=== PATIENT | male | born 1965 ===

== ENCOUNTER 2018-06-22 11:54 | Inpatient (IN) | payer OTHER ==
--- NOTE | 2018-06-22 12:36 | ED PDOC ---
Arrival/HPI - General Chief Complaint: Alcohol Ingestion Time Seen by Provider: 06/22/18 11:55 Historian: Patient, EMS - History of Present Illness Narrative History of Present Illness (Text): 06/22/18 12:33 53-year-old male presents today brought in by ambulance after being found wandering on the street. Patient is not responding to questions appropriately. He denies any pain. Admits to drinking alcohol 3 days ago. He denies any drug use. patient denies any recent trauma or injury but states he fell . along time ago. Past Medical History - Provider Review Nursing Documentation Reviewed: Yes - Travel History Have you recently traveled outside [place] w/in the past 3 mons?: No - Tetanus Immunization Tetanus Immunization: Unknown - Cardiac Hx Cardiac Disorders: No - Pulmonary Hx Respiratory Disorders: No - Neurological Hx Neurological Disorder: Yes Hx Seizures: Yes - HEENT Hx HEENT Disorder: No - Renal Hx Renal Disorder: No - Endocrine/Metabolic Hx Endocrine Disorders: No - Hematological/Oncological Hx Blood Disorders: No - Integumentary Hx Dermatological Disorder: No - Musculoskeletal/Rheumatological Hx Musculoskeletal Disorders: No - Gastrointestinal Hx Gastrointestinal Disorders: No - Genitourinary/Gynecological Hx Genitourinary Disorders: No - Psychiatric Hx Psychophysiologic Disorder: No Hx Substance Use: No Family/Social History - Physician Review Nursing Documentation Reviewed: Yes Family/Social History: Unknown Family HX Smoking Status: Current Some Days Smoker Hx Alcohol Use: Yes Hx Substance Use: No Allergies/Home Meds Allergies/Adverse Reactions: Allergies No Known Allergies Allergy (Verified 06/22/18 11:55) Home Medications: Home Meds Medication Instructions Recorded Confirmed No Known Home Med 06/22/18 06/22/18 Review of Systems - Review of Systems Systems not reviewed;Unavailable: Altered Mental Status Constitutional: absent: Fevers Respiratory: absent: Cough Cardiovascular: absent: Chest Pain Gastrointestinal: absent: Abdominal Pain, Nausea, Vomiting Musculoskeletal: Arthralgias (old injury right shoulder.). absent: Back Pain, Neck Pain Skin: absent: Rash, Pruritis Neurological: absent: Headache, Dizziness Physical Exam Vital Signs Reviewed: Yes Temperature: Afebrile Blood Pressure: Normal Pulse: Regular Respiratory Rate: Normal Appearance: Positive for: Well-Appearing, Non-Toxic, Comfortable Pain Distress: None Mental Status: Positive for: other (alert) - Systems Exam Head: Present: Other (old healed scars noted to forehead.) Pupils: Present: PERRL Mouth: Present: Moist Mucous Membranes Neck: Present: Normal Range of Motion, Trachea Midline. No: MIDLINE TENDERNESS, Paraspinal Tenderness Respiratory/Chest: Present: Clear to Auscultation, Good Air Exchange. No: Respiratory Distress, Accessory Muscle Use, Tender to Palpation Cardiovascular: Present: Regular Rate and Rhythm, Normal S1, S2. No: Murmurs Abdomen: No: Tenderness, Distention, Rebound, Guarding Back: Present: Other (old healing abrasion noted to midline back. ). No: Midline Tenderness, Paraspinal Tenderness Upper Extremity: Present: Tenderness (right shoulder; no tenderness. limited abduction, + deformity noted to clavicle/shoulder. ), Neurovascularly Intact. No: Normal ROM Lower Extremity: Present: Normal Inspection Neurological: Present: GCS=15, Motor Func Grossly Intact Skin: Present: Warm, Dry Psychiatric: Present: Alert. No: Depressed Mood Medical Decision Making ED Course and Treatment: 06/22/18 12:38 53yr old male with AMS. fingerstick; 91 cbc wbc; 3.8 cmp: wnl trop wnl ekg; normal sinus rhythm at 72 beats per minute, normal axis, incomplete RBBB, [id number] cxr; wnl ua; yeast uds: wnl tylenol negative etoh negative salicylates; negative head ct; FINDINGS: HEMORRHAGE: No intracranial hemorrhage. BRAIN: No mass effect or edema. No atrophy or chronic microvascular ischemic changes. VENTRICLES: Unremarkable. No hydrocephalus. CALVARIUM: Unremarkable. PARANASAL SINUSES: Unremarkable as visualized. No significant inflammatory changes. MASTOID AIR CELLS: Unremarkable as visualized. No inflammatory changes. OTHER FINDINGS: None. IMPRESSION: No acute intracranial findings 06/22/18 15:35 pt is NOT alert to place or time. labs unremarkable. ct head. wnl uds; negative, alcohol negative. will admit to med/surg. case discussed with dr. Phan accepts admission to med/surg for AMS. all aspects of this case were discussed the attending of record. impression; AMS admit med/surg. - RAD Interpretation Radiology Orders: 06/22/18 12:17 HEAD W/O CONTRAST [CT] Stat 06/22/18 12:18 CHEST PORTABLE [RAD] Stat Disposition/Present on Arrival - Present on Arrival Any Indicators Present on Arrival: No History of DVT/PE: No History of Uncontrolled Diabetes: No Urinary Catheter: No History of Decub. Ulcer: No History Surgical Site Infection Following: None - Disposition Have Diagnosis and Disposition been Completed?: Yes Diagnosis: Altered mental status Disposition: HOSPITALIZED Disposition Time: 14:51 Patient Plan: Admission Patient Problems: Current Active Problems Problem Status Onset Altered mental status Acute Condition: FAIR Discharge Instructions (ExitCare): Altered Mental Status (DC) Forms: Online Prasad (Japanese)
[2018-06-22 13:05] LABS: ALB/GLOB RATIO 1.1 (1.1-1.8); ALT/SGPT 42 U/L (7-56); AST/SGOT 52 U/L (17-59); BLOOD UREA NITROGEN 18 mg/dL (7-21); CALCIUM 8.4 mg/dL (8.4-10.5); GFR NON-AFRICAN AMERICAN > 60
[2018-06-22 13:10] LABS: BASO # 0.02 K/mm3 (0.0-2.0); BASO % 0.5 % (0.0-3.0); EOS # 0.1 (0.0-0.7); EOS % 2.1 % (1.5-5.0); GRAN # 1.92 (1.4-6.5); HEMOGLOBIN 12.7 g/dL (14.0-18.0); LYMPH # 1.3 (1.2-3.4); LYMPH % 34.5 % (22.0-35.0); MEAN CELL VOLUME 85.9 fl (80.0-105.0); MEAN CORPUSCULAR HEMOGLOBIN 28.8 pg (25.0-35.0); MEAN CORPUSCULAR HGB CONC 33.5 g/dl (31.0-37.0); MEAN PLATELET VOLUME 8.3 fl (7.0-11.0); MONO # 0.5 (0.1-0.6); MONO % 11.9 % (1.0-6.0); RBC 4.41 10^6/uL (3.5-6.1); RED CELL DISTRIBUTION WIDTH 13.2 % (11.5-14.5); WHITE BLOOD COUNT 3.8 10^3/ul (4.5-11.0)
[2018-06-22 13:16] LABS: TROPONIN I < 0.01 ng/mL
[2018-06-22 13:22] LABS: INR 1.13; PARTIAL THROMBOPLASTIN TIME 32.6 Seconds (25.1-36.5)
[2018-06-22 13:24] LABS: CK MB% 2.1 % (2.5-3.0); CK-MB 14.3 ng/mL (0.0-3.6)
--- NOTE | 2018-06-22 13:25 | CT ---
Date of service: 06/22/2018 PROCEDURE: CT HEAD WITHOUT CONTRAST. HISTORY: found wandering on street. old abrasions COMPARISON: None available. TECHNIQUE: Axial computed tomography images were obtained through the head/brain without intravenous contrast. Radiation dose: Total exam DLP = 819.8 mGy-cm. This CT exam was performed using one or more of the following dose reduction techniques: Automated exposure control, adjustment of the mA and/or kV according to patient size, and/or use of iterative reconstruction technique. FINDINGS: HEMORRHAGE: No intracranial hemorrhage. BRAIN: No mass effect or edema. No atrophy or chronic microvascular ischemic changes. VENTRICLES: Unremarkable. No hydrocephalus. CALVARIUM: Unremarkable. PARANASAL SINUSES: Unremarkable as visualized. No significant inflammatory changes. MASTOID AIR CELLS: Unremarkable as visualized. No inflammatory changes. OTHER FINDINGS: None. IMPRESSION: No acute intracranial findings
--- NOTE | 2018-06-22 13:32 | RAD ---
Date of service: 06/22/2018 HISTORY: found wondering on street COMPARISON: No prior. FINDINGS: LUNGS: No active pulmonary disease. PLEURA: No significant pleural effusion identified, no pneumothorax apparent. CARDIOVASCULAR: Normal. OSSEOUS STRUCTURES: No significant abnormalities. VISUALIZED UPPER ABDOMEN: Normal. OTHER FINDINGS: None. IMPRESSION: No active disease.
--- NOTE | 2018-06-22 13:34 | RAD ---
Date of service: 06/22/2018 PROCEDURE: Radiographs of the Right Shoulder HISTORY: shoulder injury COMPARISON: No prior. FINDINGS: BONES: Normal. No fracture. JOINTS: Mild degenerative changes in the acromioclavicular joint. SOFT TISSUES: Normal. OTHER FINDINGS: None. IMPRESSION: No acute findings
[2018-06-22 13:39] LABS: ACETAMINOPHEN < 10.0 ug/ml (10.0-20.0); SALICYLATE < 1 mg/dL (2.0-20.0)
[2018-06-22 15:07] LABS: PH,URINE 6.5 (4.7-8.0); URINE BILIRUBIN NEGATIVE (NEGATIVE); URINE BLOOD NEGATIVE (NEGATIVE); URINE COLOR YELLOW (YELLOW); URINE GLUCOSE (UA) NEGATIVE (NEGATIVE); URINE LEUKOCYTE ESTERASE NEGATIVE Leu/uL (NEGATIVE); URINE PROTEIN 30 mg/dL (<30 mg/dL)
[2018-06-22 15:08] LABS: URINE APPEARANCE CLEAR (CLEAR)
[2018-06-22 15:10] LABS: URINE RBC 0 - 2 /hpf (0-2)
[2018-06-22 15:11] LABS: URINE AMORPHOUS SEDIMENT FEW; URINE BACTERIA MANY (NEG)
[2018-06-22 15:58] LABS: BARBITURATES, UR NEGATIVE (NEGATIVE); BENZODIAZEPINES, UR NEGATIVE (NEGATIVE); OPIATES, UR NEGATIVE (NEGATIVE); PHENCYCLIDINE, UR NEGATIVE (NEGATIVE)
--- NOTE | 2018-06-22 17:16 | CP.PCM.HP ---
<MichaelGood - Last Filed: 06/22/18 19:36> History of Present Illness - History of Present Illness History of Present Illness: Good Rodriguez DO PGY1 - Internal Medicine Hearing Care Professional - Hospital H&P As per call to EMS: 911 Call was placed, patient was found wondering was picked up on and [address] He was found out on the street; Awake, Alert, strong odor of alcohol on breath; speaking in full sentences, transferred to [facility]. Vitals w/ EMS reported as 130/84 HR 78, 97%, GCS 15 Patient reports that he is from [facility]; he is not volunteering any further information most likely due to social factors. We reassured the patient we are only here to help however he refuses to shed any insight into past history. Upon examination he is AAO1; does reveal that he lives in an apartment off [facility] (Most likely in [place] however, unconfirmed). Upon 12 system ROS patient denies all questions. PMD: None PMH: Asthma PSH: Denies Social: EtOH reports drinking last weekend? however reported 2-3 days ago to ED Staff; Works in a "field" Allergies: NKDA Present on Admission - Present on Admission Any Indicators Present on Admission: No Review of Systems - Review of Systems All systems: reviewed and no additional remarkable complaints except Review of Systems: as per HPI Past Patient History - Tetanus Immunizations Tetanus Immunization: Unknown - Past Social History Smoking Status: Current Some Days Smoker - CARDIAC Hx Cardiac Disorders: No - PULMONARY Hx Respiratory Disorders: No - NEUROLOGICAL Hx Neurological Disorder: Yes Hx Seizures: Yes - HEENT Hx HEENT Problems: No - RENAL Hx Chronic Kidney Disease: No - ENDOCRINE/METABOLIC Hx Endocrine Disorders: No - HEMATOLOGICAL/ONCOLOGICAL Hx Blood Disorders: No - INTEGUMENTARY Hx Dermatological Problems: No - MUSCULOSKELETAL/RHEUMATOLOGICAL Hx Musculoskeletal Disorders: No - GASTROINTESTINAL Hx Gastrointestinal Disorders: No - GENITOURINARY/GYNECOLOGICAL Hx Genitourinary Disorders: No - PSYCHIATRIC Hx Psychophysiologic Disorder: No Hx Substance Use: No Meds Allergies/Adverse Reactions: Allergies Allergy/AdvReac Type Severity Reaction Status Date / Time No Known Allergies Allergy Verified 06/22/18 11:55 Physical Exam - Constitutional Appears: Non-toxic, Confused - Head Exam Head Exam: NORMAL INSPECTION, NORMOCEPHALIC Additional comments: Does have small wound on his nose - Eye Exam Eye Exam: EOMI, PERRL - ENT Exam ENT Exam: Mucous Membranes Moist, Normal Exam - Respiratory Exam Respiratory Exam: Clear to Auscultation Bilateral, NORMAL BREATHING PATTERN. absent: Rales, Rhonchi, Wheezes - Cardiovascular Exam Cardiovascular Exam: RRR, +S1, +S2. absent: Systolic Murmur - GI/Abdominal Exam GI & Abdominal Exam: Soft. absent: Tenderness - Extremities Exam Extremities exam: Positive for: normal capillary refill, pedal pulses present. Negative for: pedal edema - Back Exam Back exam: absent: CVA tenderness (L), CVA tenderness (R) Additional comments: Spinal deformity noted; minimal to no tenderness to palpation - Neurological Exam Neurological exam: Alert Additional comments: AAO1 - Psychiatric Exam Psychiatric exam: Anxious - Skin Additional comments: Multiple scabs/ wounds on lower extremities Poor hygiene throughout entire body Results - Vital Signs Recent Vital Signs: Last Vital Signs Temp 98.3 F 06/22/18 15:00 Pulse 80 06/22/18 15:00 Resp 19 06/22/18 15:00 BP 112/78 06/22/18 12:00 Pulse Ox 98 06/22/18 15:00 - Labs Result Diagrams: 06/22/18 12:17 06/22/18 12:17 Labs: Laboratory Results - last 24 hr 06/22/18 06/22/18 06/22/18 12:17 12:17 12:17 WBC 3.8 L RBC 4.41 Hgb 12.7 L Hct 37.9 L MCV 85.9 MCH 28.8 MCHC 33.5 RDW 13.2 Plt Count 186 MPV 8.3 Gran % 51.0 Lymph % (Auto) 34.5 [place] % (Auto) 11.9 H Eos % (Auto) 2.1 Baso % (Auto) 0.5 Gran # 1.92 Lymph # (Auto) 1.3 [place] # (Auto) 0.5 Eos # (Auto) 0.1 Baso # (Auto) 0.02 PT INR APTT Sodium 140 Potassium 3.4 L Chloride 108 H Carbon Dioxide 24 Anion Gap 11 BUN 18 Creatinine 0.7 L Est GFR ( Amer) > 60 Est GFR (Non-Af Amer) > 60 Random Glucose 96 Calcium 8.4 Total Bilirubin 3.5 H AST 52 ALT 42 Alkaline Phosphatase 120 Lactate Dehydrogenase 677 Total Creatine Kinase 674 H CK-MB (CK-2) 14.3 H CK-MB (CK-2) % 2.1 L Troponin I < 0.01 Total Protein 7.5 Albumin 4.0 Globulin 3.6 Albumin/Globulin Ratio 1.1 Urine Color Urine Appearance Urine pH Ur Specific [place] Urine Protein Urine Glucose (UA) Urine Ketones Urine Blood Urine Nitrate Urine Bilirubin Urine Urobilinogen Ur Leukocyte Esterase Urine RBC Urine WBC Ur Epithelial Cells Amorphous Sediment Urine Bacteria Urine Other Salicylates Urine Opiates Screen Urine Methadone Screen Acetaminophen Ur Barbiturates Screen Ur Phencyclidine Scrn Ur Amphetamines Screen U Benzodiazepines Scrn U Oth Cocaine Metabols U Cannabinoids Screen Alcohol, Quantitative < 10 06/22/18 06/22/18 06/22/18 12:17 12:17 14:55 WBC RBC Hgb Hct MCV MCH MCHC RDW Plt Count MPV Gran % Lymph % (Auto) [place] % (Auto) Eos % (Auto) Baso % (Auto) Gran # Lymph # (Auto) [place] # (Auto) Eos # (Auto) Baso # (Auto) PT 13.0 H INR 1.13 APTT 32.6 Sodium Potassium Chloride Carbon Dioxide Anion Gap BUN Creatinine Est GFR ( Amer) Est GFR (Non-Af Amer) Random Glucose Calcium Total Bilirubin AST ALT Alkaline Phosphatase Lactate Dehydrogenase Total Creatine Kinase CK-MB (CK-2) CK-MB (CK-2) % Troponin I Total Protein Albumin Globulin Albumin/Globulin Ratio Urine Color Yellow Urine Appearance Clear Urine pH 6.5 Ur Specific [place] >= 1.030 Urine Protein 30 H Urine Glucose (UA) Negative Urine Ketones Negative Urine Blood Negative Urine Nitrate Negative Urine Bilirubin Negative Urine Urobilinogen 1.0 H Ur Leukocyte Esterase Negative Urine RBC 0 - 2 Urine WBC 1 - 3 Ur Epithelial Cells 4 - 5 Amorphous Sediment Few Urine Bacteria Many Urine Other Uyeast Salicylates < 1 L Urine Opiates Screen Urine Methadone Screen Acetaminophen < 10.0 L Ur Barbiturates Screen Ur Phencyclidine Scrn Ur Amphetamines Screen U Benzodiazepines Scrn U Oth Cocaine Metabols U Cannabinoids Screen Alcohol, Quantitative 06/22/18 14:55 WBC RBC Hgb Hct MCV MCH MCHC RDW Plt Count MPV Gran % Lymph % (Auto) [place] % (Auto) Eos % (Auto) Baso % (Auto) Gran # Lymph # (Auto) [place] # (Auto) Eos # (Auto) Baso # (Auto) PT INR APTT Sodium Potassium Chloride Carbon Dioxide Anion Gap BUN Creatinine Est GFR ( Amer) Est GFR (Non-Af Amer) Random Glucose Calcium Total Bilirubin AST ALT Alkaline Phosphatase Lactate Dehydrogenase Total Creatine Kinase CK-MB (CK-2) CK-MB (CK-2) % Troponin I Total Protein Albumin Globulin Albumin/Globulin Ratio Urine Color Urine Appearance Urine pH Ur Specific [place] Urine Protein Urine Glucose (UA) Urine Ketones Urine Blood Urine Nitrate Urine Bilirubin Urine Urobilinogen Ur Leukocyte Esterase Urine RBC Urine WBC Ur Epithelial Cells Amorphous Sediment Urine Bacteria Urine Other Salicylates Urine Opiates Screen Negative Urine Methadone Screen Negative Acetaminophen Ur Barbiturates Screen Negative Ur Phencyclidine Scrn Negative Ur Amphetamines Screen Negative U Benzodiazepines Scrn Negative U Oth Cocaine Metabols Negative U Cannabinoids Screen Negative Alcohol, Quantitative Assessment & Plan - Assessment and Plan (Free Text) Assessment: 53M w/ a PMH of AMS BIBA to [facility] on 06/22 2/[address] s/p EtOH intoxication; Patient refuses to volunteer historical information in regards to admission due to social factors. Patient will be admitted for AMS and EtOH Intoxication/ Withdrawal. Plan: AMS - Most likely 2/2 EtOH Intoxication AAO1 as per Exam; No FND; Gross strength intact 5/5 CT Head negative Continue monitoring mental status EtOH Withdrawal: Banana Bag IVF 1L @ 100cc/hr PO Multivit, Thiamine, Folic acid QD starting tomorrow CIWA Ativan 1Q4 PRN EtOH Hx Asthma Duoneb Q6 PRN Questionable finding on CXR; Follow up CXR AP/Lat in AM Hypokalemic: 3.4 on adm Repleted w/ 20meq KDUR Reassess in AM; Reassess Mag in AM Elevated T-Bili AST/ALT Alk Phos wnl Will recheck TBili level in AM Can get Abdominal U/S to follow up PPX DVT: Lovenox GI: Pepcid DISPO: ADM to Obs on med/surg for workup / resolution of AMS and EtOH intoxication; Follow up w/ SW and PT Reccs Patient was seen examined and discussed w/ attending physican Dr. Sylvester Rodriguez DO PGY1 Internal Medicine Hearing Care Professional - Date & Time Date: 06/22/18 Time: 20:41 <Laura Phan - Last Filed: 06/25/18 12:57> Results - Vital Signs Recent Vital Signs: Last Vital Signs Temp 97.8 F 06/24/18 06:00 Pulse 63 06/24/18 06:00 Resp 20 06/24/18 06:00 BP 116/77 06/24/18 06:00 Pulse Ox 99 06/24/18 06:00 - Labs Result Diagrams: 06/24/18 06:30 06/24/18 06:30 Attending/Attestation - Attestation I have personally seen and examined this patient.: Yes I have fully participated in the care of the patient.: Yes I have reviewed all pertinent clinical information: Yes Notes (Text): 06/25/18 12:54 Patient was seen and examined with medical doctor. 53 yrs old italian male with PMH of alcohol abuse, seizure disorder ?, was brought in by Police as he was wandering in the street. Patient is not giving any history, he is worried that he would be deported. There is no focal deficit.There is no sign of alcohol withdrawal. There is no evidence of infection. We will get social work consult. We will monitor Neuro check.
[2018-06-22] MEDS ORDERED: Potassium Chloride 20 mEq ER Tab PO STA (17:20)
[2018-06-22] MEDS ORDERED: Albuterol-Ipratrop 3 mg / 0.5 (3 ml) UD IH PRN (17:20)
[2018-06-22] MEDS ORDERED: Sodium Chloride 0.9% 1,000 ML IV SCH (17:30)
[2018-06-22 19:29] VITALS: BMI 21.6
[2018-06-22] MEDS ORDERED: Multivitamin (MVI) 10 ML, Thiamine 100 MG, Folic Acid 1 MG in Sodium Chloride 0.9% 1,00... IV ONE (19:29)
[2018-06-23 07:14] LABS: BASO # 0.03 K/mm3 (0.0-2.0); BASO % 0.9 % (0.0-3.0); EOS # 0.1 (0.0-0.7); GRAN # 1.74 (1.4-6.5); GRAN % 52.1 % (50.0-68.0); HEMOGLOBIN 12.9 g/dL (14.0-18.0); LYMPH # 1.2 (1.2-3.4); LYMPH % 35.9 % (22.0-35.0); MEAN CELL VOLUME 87.8 fl (80.0-105.0); MEAN CORPUSCULAR HEMOGLOBIN 28.6 pg (25.0-35.0); MEAN CORPUSCULAR HGB CONC 32.6 g/dl (31.0-37.0); MEAN PLATELET VOLUME 8.6 fl (7.0-11.0); MONO # 0.3 (0.1-0.6); MONO % 8.1 % (1.0-6.0); RBC 4.51 10^6/uL (3.5-6.1); RED CELL DISTRIBUTION WIDTH 13.6 % (11.5-14.5); WHITE BLOOD COUNT 3.3 10^3/ul (4.5-11.0)
[2018-06-23 07:59] LABS: ALB/GLOB RATIO 1.1 (1.1-1.8); ALBUMIN 3.4 g/dL (3.0-4.8); ALT/SGPT 40 U/L (7-56); AST/SGOT 36 U/L (17-59); BLOOD UREA NITROGEN 12 mg/dL (7-21); CALCIUM 8.2 mg/dL (8.4-10.5); GFR NON-AFRICAN AMERICAN > 60
[2018-06-23] MEDS: Multivitamin With Minerals Tab PO SCH (08:52)
[2018-06-23 09:12] LABS: CK MB% 2.3 % (2.5-3.0)
--- NOTE | 2018-06-23 09:17 | RAD ---
Date of service: 06/23/2018 HISTORY: Hx Asthma; Questionable Nodule COMPARISON: No prior. TECHNIQUE: Chest PA and lateral FINDINGS: LUNGS: No active pulmonary disease. PLEURA: No significant pleural effusion identified. No pneumothorax apparent. CARDIOVASCULAR: No atherosclerotic calcification present Normal. OSSEOUS STRUCTURES: No significant abnormalities. VISUALIZED UPPER ABDOMEN: Normal. OTHER FINDINGS: None. IMPRESSION: No active disease.
[2018-06-23] MEDS: Enoxaparin 40 mg Syringe SC SCH (09:30)
--- NOTE | 2018-06-23 11:02 | CARD ---
APPROVED REPORT Date of service: 06/22/2018 EKG Measurement Heart [id number] <Conclusion> Normal sinus rhythm Incomplete right bundle branch block Borderline ECG
[2018-06-23 11:41] LABS: HEPATITIS B SURFACE AG Negative (NEGATIVE)
[2018-06-23 11:47] LABS: HEPATITIS A IGM NEGATIVE (NEGATIVE); HEPATITIS B CORE AB NEGATIVE (NEGATIVE)
[2018-06-23 11:59] LABS: HEPATITIS C ANTIBODY NEGATIVE (NEGATIVE)
--- NOTE | 2018-06-23 18:32 | CP.PCM.PN ---
<Naveen Forbes - Last Filed: 06/23/18 20:05> Subjective - Date & Time of Evaluation Date of Evaluation: 06/23/18 Time of Evaluation: 07:00 - Subjective Subjective: Pt seen and examined at bedside. [employer] used during interview and physical. Pt did not cooperate when answering questions. Objective - Vital Signs/Intake and Output Vital Signs (last 24 hours): Temp Pulse Resp BP Pulse Ox 98.8 F 69 18 119/79 96 06/23/18 17:24 06/23/18 17:24 06/23/18 17:24 06/23/18 17:24 06/23/18 17:24 Intake and Output: 06/23/18 06/23/18 06:59 18:59 Intake Total 1560 Output Total 800 Balance 760 - Medications Medications: Current Medications Albuterol/Ipratropium (Duoneb 3 Mg/0.5 Mg (3 Ml) Ud) 3 ml IH [id number] PRN PRN Reason: Wheezing Enoxaparin Sodium (Lovenox) 40 mg SC DAILY [facility]; Protocol Last Admin: 06/23/18 09:30 Dose: 40 mg Famotidine (Pepcid) 40 mg PO HS [facility] Last Admin: 06/22/18 21:45 Dose: 40 mg Folic Acid (Folic Acid) 1 mg PO DAILY [facility] Last Admin: 06/23/18 09:30 Dose: 1 mg Levetiracetam (Keppra) 500 mg PO BID [facility] Last Admin: 06/23/18 18:03 Dose: 500 mg Lorazepam (Ativan) 1 mg IVP Q4H PRN; Protocol PRN Reason: Symptoms of alcohol withdrawl Multivitamins/Minerals (Therapeutic-M Tab) 1 tab PO 0800 [facility] Last Admin: 06/23/18 08:52 Dose: 1 tab Thiamine HCl (Vitamin B1 Tab) 100 mg PO DAILY [facility] Last Admin: 06/23/18 09:30 Dose: 100 mg - Labs Labs: 06/23/18 06:30 06/23/18 06:30 PT 13.0 SECONDS (9.4-12.5) H 06/22/18 12:17 INR 1.13 06/22/18 12:17 APTT 32.6 Seconds (25.1-36.5) 06/22/18 12:17 - Constitutional Appears: Non-toxic, No Acute Distress - Head Exam Head Exam: ATRAUMATIC, NORMAL INSPECTION, NORMOCEPHALIC - Eye Exam Eye Exam: EOMI - ENT Exam ENT Exam: Mucous Membranes Moist - Neck Exam Neck Exam: Full ROM - Respiratory Exam Respiratory Exam: Clear to Ausculation Bilateral, NORMAL BREATHING PATTERN. absent: Accessory Muscle Use, Wheezes, Respiratory Distress - Cardiovascular Exam Cardiovascular Exam: RRR, +S1, +S2. absent: Diastolic murmur, Murmur - GI/Abdominal Exam GI & Abdominal Exam: Soft, Normal Bowel Sounds. absent: Tenderness - Extremities Exam Extremities Exam: Full ROM. absent: Calf Tenderness - Neurological Exam Neurological Exam: Alert, Awake - Skin Skin Exam: Dry, Intact, Warm Assessment and Plan - Assessment and Plan (Free Text) Assessment: 53M w/ a PMH of AMS, BIBA to [facility] on 06/22 after found wandering the streets s/p possible EtOH intoxication. Patient continues to refuse providing historical information possibly due to social factors. On review of charts, patient has been seen in ED and/or admitted multiple times at [facility] in the past for ETOH withdrawal and seizures. Most recently seen in ED at [facility] on 06/21/17 for similar symptoms. Pt has history of taking Keppra 500 PO BID. Will restart keppra this admission and attempt to contact sibling Mini Duran [phone] for additional history. Plan: AMS - Most likely 2/2 EtOH Intoxication - pt oriented to self and place only, no focal deficits, 5/5 strength - CT Head: negative for hemorrhage or acute intracranial findings - Continue monitoring mental status - will attempt to contact family for further history EtOH Withdrawal - UDS: negative but patient with multiple admissions for ETOH withdrawal seizures, admits to drinking beer, cannot quantify - continue PO Multivitamin, Thiamine, Folic acid - CIWA - Ativan 1Q4 PRN - started Keppra 500mg PO BID Hx ?Asthma - Duoneb Q6 PRN - Questionable finding on initial CXR, official read is negative - repeat CXR AP/Lat: no active disease Hypokalemia, resolved - 3.4 on adm ? 3.9 toda - Repleted w/ 20meq KDUR - Mg 1.8 - continue to monitor Elevated T-Bili - AST/ALT Alk Phos wnl - 3.5 on adm ? repeat T-bili 3.6 - likely secondary to alcohol abuse, continue to monitor, may need abdominal u/s Right shoulder pain, resolved - shoulder tenderness on exam in ED - pain has resolved today - shoulder Xray: no acute findings Ppx - Lovenox - Pepcid Pt seen, examined, assessment and plan discussed with Dr Sylvester Forbes PGY1 <Laura Phan - Last Filed: 06/25/18 13:01> Objective - Vital Signs/Intake and Output Vital Signs (last 24 hours): Temp Pulse Resp BP Pulse Ox 97.8 F 63 20 116/77 99 06/24/18 06:00 06/24/18 06:00 06/24/18 06:00 06/24/18 06:00 06/24/18 06:00 - Labs Labs: 06/24/18 06:30 06/24/18 06:30 PT 13.0 SECONDS (9.4-12.5) H 06/22/18 12:17 INR 1.13 06/22/18 12:17 APTT 32.6 Seconds (25.1-36.5) 06/22/18 12:17 Attending/Attestation - Attestation I have personally seen and examined this patient.: Yes I have fully participated in the care of the patient.: Yes I have reviewed all pertinent clinical information, including history, physical exam and plan: Yes
[2018-06-24 07:02] LABS: BASO # 0.02 K/mm3 (0.0-2.0); BASO % 0.6 % (0.0-3.0); EOS # 0.1 (0.0-0.7); EOS % 4.3 % (1.5-5.0); GRAN # 1.45 (1.4-6.5); GRAN % 44.4 % (50.0-68.0); LYMPH # 1.3 (1.2-3.4); MEAN CELL VOLUME 88.5 fl (80.0-105.0); MEAN CORPUSCULAR HEMOGLOBIN 29.2 pg (25.0-35.0); MEAN PLATELET VOLUME 8.4 fl (7.0-11.0); MONO # 0.4 (0.1-0.6); MONO % 11.7 % (1.0-6.0); RBC 4.79 10^6/uL (3.5-6.1); RED CELL DISTRIBUTION WIDTH 13.5 % (11.5-14.5); WHITE BLOOD COUNT 3.3 10^3/ul (4.5-11.0)
[2018-06-24 07:41] LABS: ALB/GLOB RATIO 1.1 (1.1-1.8); ALBUMIN 3.7 g/dL (3.0-4.8); ALT/SGPT 35 U/L (7-56); AST/SGOT 36 U/L (17-59); BLOOD UREA NITROGEN 12 mg/dL (7-21); CALCIUM 8.2 mg/dL (8.4-10.5); GFR NON-AFRICAN AMERICAN > 60
[2018-06-24] MEDS ORDERED: Lidocaine 2% PF (10 ml) Amp ONE (07:57)
[2018-06-24] MEDS ORDERED: Bupivacaine 0.5% 50 ML IJ ONE (07:58)
[2018-06-24 09:20] VITALS: BP 116/77; PULSE 63; RESP 20; TEMP 97.8; O2SAT 99
[2018-06-24] MEDS: Multivitamin With Minerals Tab PO SCH (09:40)
[2018-06-24] MEDS: Enoxaparin 40 mg Syringe SC SCH (09:40)
[2018-06-24] MEDS ORDERED: Influenza Vaccine 60 mcg/0.5 mL SYR (4YR UP) IM ONE (15:59)
--- NOTE | 2018-06-24 21:26 | CP.PCM.DIS ---
<Naveen Forbes - Last Filed: 06/24/18 21:26> Provider - Provider Date of Admission: 06/22/18 17:56 Attending physician: Laura Phan MD Time Spent in preparation of Discharge (in minutes): 45 Diagnosis - Discharge Diagnosis (1) Altered mental status Status: Acute Priority: High Hospital Course - Lab Results Lab Results: Most Recent Lab Values WBC 3.3 10^3/ul (4.5-11.0) L 06/24/18 06:30 RBC 4.79 10^6/uL (3.5-6.1) 06/24/18 06:30 Hgb 14.0 g/dL (14.0-18.0) 06/24/18 06:30 Hct 42.4 % (42.0-52.0) 06/24/18 06:30 MCV 88.5 fl (80.0-105.0) 06/24/18 06:30 MCH 29.2 pg (25.0-35.0) 06/24/18 06:30 MCHC 33.0 g/dl (31.0-37.0) 06/24/18 06:30 RDW 13.5 % (11.5-14.5) 06/24/18 06:30 Plt Count 179 10^3/uL (120.0-450.0) 06/24/18 06:30 MPV 8.4 fl (7.0-11.0) 06/24/18 06:30 Gran % 44.4 % (50.0-68.0) L 06/24/18 06:30 Lymph % (Auto) 39.0 % (22.0-35.0) H 06/24/18 06:30 Knox % (Auto) 11.7 % (1.0-6.0) H 06/24/18 06:30 Eos % (Auto) 4.3 % (1.5-5.0) 06/24/18 06:30 Baso % (Auto) 0.6 % (0.0-3.0) 06/24/18 06:30 Gran # 1.45 (1.4-6.5) 06/24/18 06:30 Lymph # (Auto) 1.3 (1.2-3.4) 06/24/18 06:30 Knox # (Auto) 0.4 (0.1-0.6) 06/24/18 06:30 Eos # (Auto) 0.1 (0.0-0.7) 06/24/18 06:30 Baso # (Auto) 0.02 K/mm3 (0.0-2.0) 06/24/18 06:30 PT 13.0 SECONDS (9.4-12.5) H 06/22/18 12:17 INR 1.13 06/22/18 12:17 APTT 32.6 Seconds (25.1-36.5) 06/22/18 12:17 Sodium 138 mmol/L (132-148) 06/24/18 06:30 Potassium 3.9 mmol/L (3.6-5.0) 06/24/18 06:30 Chloride 104 mmol/L (98-107) 06/24/18 06:30 Carbon Dioxide 26 mmol/L (21-33) 06/24/18 06:30 Anion Gap 12 (10-20) 06/24/18 06:30 BUN 12 mg/dL (7-21) 06/24/18 06:30 Creatinine 0.8 mg/dl (0.8-1.5) 06/24/18 06:30 Est GFR ( Amer) > 60 06/24/18 06:30 Est GFR (Non-Af Amer) > 60 06/24/18 06:30 POC Glucose (mg/dL) 91 mg/dL (65-110) 06/22/18 12:04 Random Glucose 87 mg/dL (70-110) 06/24/18 06:30 Calcium 8.2 mg/dL (8.4-10.5) L 06/24/18 06:30 Phosphorus 3.6 mg/dL (2.5-4.5) 06/23/18 06:30 Magnesium 1.8 mg/dL (1.7-2.2) 06/23/18 06:30 Total Bilirubin 2.8 mg/dL (0.2-1.3) H 06/24/18 06:30 AST 36 U/L (17-59) 06/24/18 06:30 ALT 35 U/L (7-56) 06/24/18 06:30 Alkaline Phosphatase 113 U/L (38-126) 06/24/18 06:30 Lactate Dehydrogenase 677 U/L (333-699) 06/22/18 12:17 Total Creatine Kinase 308 U/L (35-230) H 06/23/18 06:30 CK-MB (CK-2) 7.0 ng/mL (0.0-3.6) H 06/23/18 06:30 CK-MB (CK-2) % 2.3 % (2.5-3.0) L 06/23/18 06:30 Troponin I < 0.01 ng/mL 06/22/18 12:17 Total Protein 7.3 g/dL (5.8-8.3) 06/24/18 06:30 Albumin 3.7 g/dL (3.0-4.8) 06/24/18 06:30 Globulin 3.5 gm/dL 06/24/18 06:30 Albumin/Globulin Ratio 1.1 (1.1-1.8) 06/24/18 06:30 Urine Color Yellow (YELLOW) 06/22/18 14:55 Urine Appearance Clear (CLEAR) 06/22/18 14:55 Urine pH 6.5 (4.7-8.0) 06/22/18 14:55 Ur Specific [place] >= 1.030 (1.005-1.035) 06/22/18 14:55 Urine Protein 30 mg/dL (<30 mg/dL) H 06/22/18 14:55 Urine Glucose (UA) Negative mg/dL (NEGATIVE) 06/22/18 14:55 Urine Ketones Negative mg/dL (NEGATIVE) 06/22/18 14:55 Urine Blood Negative (NEGATIVE) 06/22/18 14:55 Urine Nitrate Negative (NEGATIVE) 06/22/18 14:55 Urine Bilirubin Negative (NEGATIVE) 06/22/18 14:55 Urine Urobilinogen 1.0 E.U./dL (<1 E.U./dL) H 06/22/18 14:55 Ur Leukocyte Esterase Negative Chan/uL (NEGATIVE) 06/22/18 14:55 Urine RBC 0 - 2 /hpf (0-2) 06/22/18 14:55 Urine WBC 1 - 3 /hpf (0-6) 06/22/18 14:55 Ur Epithelial Cells 4 - 5 /hpf (0-5) 06/22/18 14:55 Amorphous Sediment Few 06/22/18 14:55 Urine Bacteria Many (NEG) 06/22/18 14:55 Urine Other Uyeast 06/22/18 14:55 Salicylates < 1 mg/dL (2.0-20.0) L 06/22/18 12:17 Urine Opiates Screen Negative (NEGATIVE) 06/22/18 14:55 Urine Methadone Screen Negative (NEGATIVE) 06/22/18 14:55 Acetaminophen < 10.0 ug/ml (10.0-20.0) L 06/22/18 12:17 Ur Barbiturates Screen Negative (NEGATIVE) 06/22/18 14:55 Ur Phencyclidine Scrn Negative (NEGATIVE) 06/22/18 14:55 Ur Amphetamines Screen Negative (NEGATIVE) 06/22/18 14:55 U Benzodiazepines Scrn Negative (NEGATIVE) 06/22/18 14:55 U Oth Cocaine Metabols Negative (NEGATIVE) 06/22/18 14:55 U Cannabinoids Screen Negative (NEGATIVE) 06/22/18 14:55 Alcohol, Quantitative < 10 mg/dL (0-10) 06/22/18 12:17 Hepatitis A IgM Ab Negative (NEGATIVE) 06/22/18 12:00 Hep Bs Antigen Negative (NEGATIVE) 06/22/18 12:00 Hep B Core IgM Ab Negative (NEGATIVE) 06/22/18 12:00 Hepatitis C Antibody Negative (NEGATIVE) 06/22/18 12:00 - Hospital Course Hospital Course: Pt is a 53 year old gabonese speaking man w/ a PMH of AMS, alcohol abuse who [place] [facility] [place] after found wandering the streets s/p possible EtOH intoxication. On presentation, pt was awake, alert and had strong odor of alcohol on breath, speaking in full sentences. Vitals in the EMS was HR 78, BP 130/84, satting 97% on room air. Glascow coma score was 15. History was difficult to obtain as patient was refusing to provide any further information possibly due to social factors. Pt was admitted for altered mental status secondary to alcohol intoxication and placed on observation for alcohol withdrawal. CT head was negative for acute findings. He was given a banana bag IVF, multivitamin, thiamine, folic acid and ativan prn and placed on CIWA protocol. K was 3.4 and he was additionally replete with 20mEq KDUR. On review of charts, patient had been seen in ED and/or admitted multiple times at [facility] in the past for ETOH withdrawal and seizures. Most recently seen in ED at [facility] on 06/21/17 for similar symptoms. Pt has history of taking Keppra 500 PO BID. Pt was restarted on Keppra during this admission. Labwork was not concerning except for elevated Total bili which improved. Pt did not have any withdrawal symptoms and CIWA score was 1, and he was clinically stable throughout admission. Pt continued to refuse providing more historical information but does reveal that he is from [facility] and lives with a friend in an apartment off [address] [facility] (likely in [place], however, it was difficult to confirm). Attempt was made to contact family but was unsuccessful. Social work was able to confirm that patient was staying at [facility]. He will be discharged on Keppra 500 mg PO BID to [facility]. - Date & Time of H&P Date of H&P: 06/24/18 Time of H&P: 07:00 Discharge Exam - Head Exam Head Exam: ATRAUMATIC, NORMAL INSPECTION, NORMOCEPHALIC - Eye Exam Eye Exam: EOMI - ENT Exam ENT Exam: Mucous Membranes Moist - Respiratory Exam Respiratory Exam: NORMAL BREATHING PATTERN, UNREMARKABLE. absent: Accessory Muscle Use, Wheezes, Respiratory Distress - Cardiovascular Exam Cardiovascular Exam: RRR, +S1, +S2. absent: Diastolic murmur, Systolic Murmur - GI/Abdominal Exam GI & Abdominal Exam: Normal Bowel Sounds, Soft, Unremarkable. absent: Tenderness - Extremities Exam Extremities exam: full ROM, pedal pulses present - Neurological Exam Neurological exam: Alert, Oriented x3 - Psychiatric Exam Psychiatric exam: Normal Affect, Normal Mood - Skin Skin Exam: Dry, Intact, Normal Color, Warm Discharge Plan - Discharge Medications Prescriptions: levETIRAcetam [Keppra] 500 mg PO BID #60 tab - Follow Up Plan Condition: FAIR Disposition: HOME/ ROUTINE Instructions: Altered Mental Status (DC), Alcohol Abuse and Alcoholism (DC), Altered Mental Status (GEN) Additional Instructions: 1. please follow up with your primary care physician within 1 week 2. you are being discharged with a cab voucher to [place] to the [facility] 3. you are given a prescription for Keppra 500mg to be taken twice daily, to prevent seizures. Please take as directed 4. If your symptoms return or worsen, please go to the nearest emergency department 5. (spoke with sql report writer Paddy Ochoa [id number]) <Laura Phan - Last Filed: 06/25/18 13:01> Provider - Provider Date of Admission: 06/22/18 17:56 Attending physician: Laura Phan MD Hospital Course - Lab Results Lab Results: Most Recent Lab Values WBC 3.3 10^3/ul (4.5-11.0) L 06/24/18 06:30 RBC 4.79 10^6/uL (3.5-6.1) 06/24/18 06:30 Hgb 14.0 g/dL (14.0-18.0) 06/24/18 06:30 Hct 42.4 % (42.0-52.0) 06/24/18 06:30 MCV 88.5 fl (80.0-105.0) 06/24/18 06:30 MCH 29.2 pg (25.0-35.0) 06/24/18 06:30 MCHC 33.0 g/dl (31.0-37.0) 06/24/18 06:30 RDW 13.5 % (11.5-14.5) 06/24/18 06:30 Plt Count 179 10^3/uL (120.0-450.0) 06/24/18 06:30 MPV 8.4 fl (7.0-11.0) 06/24/18 06:30 Gran % 44.4 % (50.0-68.0) L 06/24/18 06:30 Lymph % (Auto) 39.0 % (22.0-35.0) H 06/24/18 06:30 Knox % (Auto) 11.7 % (1.0-6.0) H 06/24/18 06:30 Eos % (Auto) 4.3 % (1.5-5.0) 06/24/18 06:30 Baso % (Auto) 0.6 % (0.0-3.0) 06/24/18 06:30 Gran # 1.45 (1.4-6.5) 06/24/18 06:30 Lymph # (Auto) 1.3 (1.2-3.4) 06/24/18 06:30 Knox # (Auto) 0.4 (0.1-0.6) 06/24/18 06:30 Eos # (Auto) 0.1 (0.0-0.7) 06/24/18 06:30 Baso # (Auto) 0.02 K/mm3 (0.0-2.0) 06/24/18 06:30 PT 13.0 SECONDS (9.4-12.5) H 06/22/18 12:17 INR 1.13 06/22/18 12:17 APTT 32.6 Seconds (25.1-36.5) 06/22/18 12:17 Sodium 138 mmol/L (132-148) 06/24/18 06:30 Potassium 3.9 mmol/L (3.6-5.0) 06/24/18 06:30 Chloride 104 mmol/L (98-107) 06/24/18 06:30 Carbon Dioxide 26 mmol/L (21-33) 06/24/18 06:30 Anion Gap 12 (10-20) 06/24/18 06:30 BUN 12 mg/dL (7-21) 06/24/18 06:30 Creatinine 0.8 mg/dl (0.8-1.5) 06/24/18 06:30 Est GFR ( Amer) > 60 06/24/18 06:30 Est GFR (Non-Af Amer) > 60 06/24/18 06:30 POC Glucose (mg/dL) 91 mg/dL (65-110) 06/22/18 12:04 Random Glucose 87 mg/dL (70-110) 06/24/18 06:30 Calcium 8.2 mg/dL (8.4-10.5) L 06/24/18 06:30 Phosphorus 3.6 mg/dL (2.5-4.5) 06/23/18 06:30 Magnesium 1.8 mg/dL (1.7-2.2) 06/23/18 06:30 Total Bilirubin 2.8 mg/dL (0.2-1.3) H 06/24/18 06:30 AST 36 U/L (17-59) 06/24/18 06:30 ALT 35 U/L (7-56) 06/24/18 06:30 Alkaline Phosphatase 113 U/L (38-126) 06/24/18 06:30 Lactate Dehydrogenase 677 U/L (333-699) 06/22/18 12:17 Total Creatine Kinase 308 U/L (35-230) H 06/23/18 06:30 CK-MB (CK-2) 7.0 ng/mL (0.0-3.6) H 06/23/18 06:30 CK-MB (CK-2) % 2.3 % (2.5-3.0) L 06/23/18 06:30 Troponin I < 0.01 ng/mL 06/22/18 12:17 Total Protein 7.3 g/dL (5.8-8.3) 06/24/18 06:30 Albumin 3.7 g/dL (3.0-4.8) 06/24/18 06:30 Globulin 3.5 gm/dL 06/24/18 06:30 Albumin/Globulin Ratio 1.1 (1.1-1.8) 06/24/18 06:30 Urine Color Yellow (YELLOW) 06/22/18 14:55 Urine Appearance Clear (CLEAR) 06/22/18 14:55 Urine pH 6.5 (4.7-8.0) 06/22/18 14:55 Ur Specific [place] >= 1.030 (1.005-1.035) 06/22/18 14:55 Urine Protein 30 mg/dL (<30 mg/dL) H 06/22/18 14:55 Urine Glucose (UA) Negative mg/dL (NEGATIVE) 06/22/18 14:55 Urine Ketones Negative mg/dL (NEGATIVE) 06/22/18 14:55 Urine Blood Negative (NEGATIVE) 06/22/18 14:55 Urine Nitrate Negative (NEGATIVE) 06/22/18 14:55 Urine Bilirubin Negative (NEGATIVE) 06/22/18 14:55 Urine Urobilinogen 1.0 E.U./dL (<1 E.U./dL) H 06/22/18 14:55 Ur Leukocyte Esterase Negative Chan/uL (NEGATIVE) 06/22/18 14:55 Urine RBC 0 - 2 /hpf (0-2) 06/22/18 14:55 Urine WBC 1 - 3 /hpf (0-6) 06/22/18 14:55 Ur Epithelial Cells 4 - 5 /hpf (0-5) 06/22/18 14:55 Amorphous Sediment Few 06/22/18 14:55 Urine Bacteria Many (NEG) 06/22/18 14:55 Urine Other Uyeast 06/22/18 14:55 Salicylates < 1 mg/dL (2.0-20.0) L 06/22/18 12:17 Urine Opiates Screen Negative (NEGATIVE) 06/22/18 14:55 Urine Methadone Screen Negative (NEGATIVE) 06/22/18 14:55 Acetaminophen < 10.0 ug/ml (10.0-20.0) L 06/22/18 12:17 Ur Barbiturates Screen Negative (NEGATIVE) 06/22/18 14:55 Ur Phencyclidine Scrn Negative (NEGATIVE) 06/22/18 14:55 Ur Amphetamines Screen Negative (NEGATIVE) 06/22/18 14:55 U Benzodiazepines Scrn Negative (NEGATIVE) 06/22/18 14:55 U Oth Cocaine Metabols Negative (NEGATIVE) 06/22/18 14:55 U Cannabinoids Screen Negative (NEGATIVE) 06/22/18 14:55 Alcohol, Quantitative < 10 mg/dL (0-10) 06/22/18 12:17 Hepatitis A IgM Ab Negative (NEGATIVE) 06/22/18 12:00 Hep Bs Antigen Negative (NEGATIVE) 06/22/18 12:00 Hep B Core IgM Ab Negative (NEGATIVE) 06/22/18 12:00 Hepatitis C Antibody Negative (NEGATIVE) 06/22/18 12:00 Attending/Attestation - Attestation I have personally seen and examined this patient.: Yes I have fully participated in the care of the patient.: Yes I have reviewed all pertinent clinical information, including history, physical exam and plan: Yes Notes (Text): 06/25/18 12:57 Patient was seen and examined with medical radiation therapist. 53 yrs old gabonese male with PMH of alcohol abuse, seizure disorder ?, was brought in by Police as he was wandering in the street. Patient was not giving any history, he is worried that he would be deported. There is no focal deficit.There is no sign of alcohol withdrawal. There is no evidence of infection.Patient is ambulatory. donor services manager were consulted. Patient will be discharged to custodial.
== END 2018-06-24 18:45 | disposition home or self-care (01) | DRG 750 ==
LOC: ED 11:54 → ERH 17:56 → 3RSO 19:19
PROVIDERS: ADMIT Internal Medicine; ATTEND Internal Medicine
DX: F10.129 Alcohol abuse with intoxication, unspecified (principal); R56.9 Unspecified convulsions; J45.909 Unspecified asthma, uncomplicated; M25.511 Pain in right shoulder; Y90.0 Blood alcohol level of less than 20 mg/100 ml; Z87.891 Personal history of nicotine dependence